=== PATIENT | male | born 1950 | race Caucasian/White ===

== ENCOUNTER 2020-07-04 08:35 | Outpatient (REF) | payer MEDICARE, SELFPAY ==
--- NOTE | ~2020-07-04 | XR_ITS ---
EXAMINATION: XR CHEST CLINICAL INFORMATION: Dyspnea, hypertension and fatigue COMPARISON: Previous chest x-ray and chest CTA June 2019 TECHNIQUE: 2 views of the chest were obtained. FINDINGS: The cardiac silhouette is slightly enlarged but stable. Hilar and mediastinal contours are unremarkable. The lungs are clear. There is no pleural effusion or pneumothorax. There are degenerative changes of the spine. There is a new a loop recorder seen in the left chest wall. XR/XR chest 2V IMPRESSION: Slightly enlarged cardiac silhouette similar to previous exam. No evidence for acute disease in the chest.
[2020-07-04 11:34] LABS: MANUAL DIFF FLAG NO
[2020-07-04 12:01] LABS: Basophils Absolute Auto 0.1 X10*3/uL (0.0-0.2); Basophils Percent Auto 0.6 % (0-2); Eosinophils Absolute Auto 0.3 X10*3/uL (0.0-0.4); Eosinophils Percent Auto 2.6 % (0-4); Hematocrit 44.9 % (42-52); Hemoglobin 14.9 g/dl (14.0-18.0); Imm Gran Abs Auto 0.06 X10*3/uL (0.00-0.03); Imm Gran Pct Auto 0.6 % (0.0-0.4); Lymphocytes Absolute Auto 2.6 X10*3/uL (1.2-4.9); Lymphocytes Percent Auto 26.7 % (20-40); Mean Corpuscular HGB Conc 33.2 g/dl (31.0-36.0); Mean Corpuscular Hemoglobin 30.3 pg (27.0-33.0); Mean Corpuscular Volume 91.3 fL (80-98); Mean Platelet Volume 12.3 fL (9.4-12.4); Monocytes Absolute Auto 0.9 X10*3/uL (0.1-1.2); Monocytes Percent Auto 8.8 % (2-11); Neutrophils Percent Auto 60.7 % (45-73); Platelet Count 222 X10*3/uL (160-400); Red Blood Count 4.92 X10*6/uL (4.60-5.80); Red Cell Distribution Width 13.2 % (11.0-16.0); White Blood Count 9.8 X10*3/uL (4.8-10.8)
[2020-07-04 12:04] LABS: Alanine Aminotransferase 27 U/L (0-40); Albumin Level 4.4 g/dL (3.5-5.0); Alkaline Phosphatase 72 U/L (39-117); Anion Gap 16 (12-20); Aspartate Amino Transferase 27 U/L (5-37); B Type Natriuretic Peptide 100 pg/mL (<100); Bilirubin Total 0.6 mg/dL (0.0-1.0); Blood Urea Nitrogen 18 mg/dL (9-16); Calcium 9.7 mg/dL (8.4-10.2); Carbon Dioxide 25 mmol/L (22-29); Chloride 100 mmol/L (96-108); Cholesterol 144 mg/dL; Estimated Glomerular Filt Rate > 60; Glucose Fasting 118 mg/dL (60-99); HDL Cholesterol 63 mg/dL; LDL Cholesterol Calculated 55 mg/dl; Potassium 4.7 mmol/L (3.3-5.1); Sodium 136 mmol/L (135-145); Total Protein 7.4 g/dL (6.5-8.0); Triglycerides 132 mg/dL
[2020-07-04 12:26] LABS: Thyroid Stimulating Hormone 0.98 uIU/mL (0.32-4.0); Vitamin D 25-OH Total 39.6 ng/mL (>30)
== END 2020-07-04 08:36 | disposition home or self-care (01) ==
LOC: HO.HMGCLDS 08:35
PROVIDERS: Visit Provider Internal Medicine
DX: R06.00 Dyspnea, unspecified (principal); R53.83 Other fatigue; I10 Essential (primary) hypertension; E78.00 Pure hypercholesterolemia, unspecified; E55.9 Vitamin D deficiency, unspecified; L03.116 Cellulitis of left lower limb
CPT/HCPCS: 36415; 71046; 80053; 80061; 82306; 83880; 84443; 85025; 86140

== ENCOUNTER 2024-06-14 10:31 | Outpatient (AMB) | payer MEDICARE, SELFPAY ==
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
[2024-06-14 11:01] VITALS: BP 142/80; PULSE 50; RESP 16; TEMP 36.6; O2SAT 98; BMI 33.5
--- OUTSIDE RECORDS SUMMARY | 2024-06-14 12:35 | XMS_ITS | Clinical Summary ---
Author Organization [address] [facility] Address [address] [place] [address] Phone Care Team Providers Care Tile Power Shear Operator Name Role Phone Jourdan Fernandez DO Primary Care Provider [phone] Encounters Date Type Department Care Team Description 06/14/2024 10:55 AM EDT Ancillary Procedure [facility] - [address] [place] [address] Arrived 06/14/2024 Telephone [facility] - [address] [place] [address] Jayashree Armenta NP 06/11/2024 Ancillary Procedure [facility] [address] [place] [address] Arrived 03/29/2024 8:15 AM EST Ancillary Procedure [facility] - [address] [place] [address] from Last 3 Months Medical History Medical History Date Comments Family history of cardiovascular disease DX:Family history of cardiovascular disease Essential hypertension DX:Essent ial hypertension Hyperlipidemia DX:Hyperlipidemi a Diabetes mellitus type 2, co ntrolled, with complications (CMS/HCC) DX:Diabetes mellitus type 2, controlled, with complications (HCC) Family History Medical History Relation Name Comments Heart attack Father Heart attack Mother Other cancer Mother Cervical Relation Name Status Comments Father Mother 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 Tobacco Use Types Packs/Day Years Used Date Smoking Tobacco: Former Smokeless Tobacco: Never Alcohol Use Standard Drinks/Week Comments No 0 (1 standard drink = 0.6 oz pur e alcohol) Sex and Gender Information Value Date Recorded Sex Assigned at Not on file Legal Sex Male 6:44 PM EST Gender Identity Not on file Sexual Orientation Not on file Obstetrics History Last Filed Vital Signs Vital Sign Reading Time Taken Comments Blood Pressure 122/76 10/22/2023 8:12 AM EDT Sitting L Arm Pulse 42 10/22/2023 8:12 AM EDT Temperature - - Respiratory Rate - - Oxygen Saturation - - Inhaled Oxygen Concentration - - Weight 101 kg (222 lb 12.8 oz) 10/22/2023 8:12 AM EDT Height 175.3 cm (5' 9 ) 10/22/2023 8:12 AM EDT Body Mass Index 32.9 10/22/2023 8:12 AM EDT Plan of Treatment Upcoming Encounters Date Type Department Care Team (Late st Contact Info) Description 12/15/2024 9:00 AM EDT Ancillary Procedure [facility] [address] [facility] [address] [place] [address] Health Maintenance Due Date Last Done Comments Diabetes: Annual GFR (Glomer ular Filtration Rate) 1948 Diabetes: Annual Foot Exam 01/25/1958 Diabetes: Annual Retina Eye Exam 01/25/1958 Zoster Vaccines (1 of 2) 01/25/1998 Pneumococcal Vaccine: 50+ Ye ars (2 of 2 - PCV) 04/26/2014 04/26/2013 DTaP,Tdap,and Td Vaccines (2 - Tdap) 06/16/2018 06/16/2008 Cholesterol Screening (Lipid Panel) 02/15/2022 Depression Screening 02/15/2022 Falls Risk Assessment 02/15/2022 Hepatitis C Screening 02/15/2022 Hypertension/CHF/CAD Annual BMP Blood Test 02/15/2022 Medicare Annual Wellness Visit 02/15/2022 Social Influencers of Health Screening 02/15/2022 RSV Immunization Adult Patie nts (1 - 1-dose 75+ series) 01/25/2023 COVID-19 Vaccine (2023-2 5 season) 2023 Diabetes: Annual Urine Albumin-Creatinine Ratio (uACR) 03/30/2024 Diabetes: Blood Sugar Contro l Test (HGBA1C) 03/30/2024 Influenza Vaccine (Season Ended) 2024 04/26/19 14 HIB Vaccines Aged Out No longer eligi ble based on patient's age to complete this topic HPV Vaccines Aged Out No longer eligi ble based on patient's age to complete this topic Hepatitis A Vaccines Aged Out No long er eligible based on patient's age to complete this topic Hepatitis B Vaccines Aged Out No long er eligible based on patient's age to complete this topic IPV Vaccines Aged Out No longer eligi ble based on patient's age to complete this topic MMR Vaccines Aged Out No longer eligi ble based on patient's age to complete this topic Meningococcal ACWY Vaccine Aged Out N o longer eligible based on patient's age to complete this topic Meningococcal B Vaccine Aged Out No l onger eligible based on patient's age to complete this topic RSV Immunization Patients Un omaira 20 months Aged Out No longer eligible b ased on patient's age to complete this topic Varicella Vaccines Aged Out No longer eligible based on patient's age to complete this topic Medical Devices Implanted Type Area Squeegee Finisher Device Identifier Shelf Expiration Date Model / Serial / Lot Medt-Card Micra Av [id number] Implanted:12/2019 (Quantity not on file) Cardiac Pacemaker [employer] - CARDIAC RHYTH-CRDM MICRA AV [id number] / [id number] / Procedures Procedure Name Priority Date/Time Associated Diagnosis Comments CARDIAC DEVICE CHECK- REMOTE- MURJ Routine 06/14/2024 10:50 AM EDT CARDIAC DEVICE CHECK- REMOTE- MURJ Routine 06/10/2024 11:58 PM EDT EXTERNAL ENDOSCOPY REPORT Routine 05/30/2024 11:12 AM EDT CARDIAC DEVICE CHECK- REMOTE- MURJ Routine 03/29/2024 8:13 AM EST from Last 3 Months Results * Cardiac device check - Remote- MURJ (06/14/2024 10:50 AM EDT) Only the most recent of3 resultswithin the time period is included. Date Time Interrogation Session [id number] CV DEVICE CHECK Type Interrogation Session Remote CV DEVICE CHECK Implantable Pulse Generator Squeegee Finisher MDT CV DEVICE CHECK Implantable Pulse Generator Type IPG CV DEVICE CHECK Implantable Pulse Generator Model Micra AV [id number] CV DEVICE CHECK Implantable Pulse Generator Serial Number [id number] CV DEVICE CHECK Implantable Pulse Generator Implant Date 20191117 CV DEVICE CHECK Battery Remaining Longevity 96.0 CV DEVICE CHECK Battery Voltage 3.000 CV D EVICE CHECK Battery PROJECT COORDINATOR RN Trigger 2.558 CV DEVICE CHECK Battery Status Middle of Service CV DEVICE CHECK Jorge Statistic RV Percent Paced 69.89 CV DEVICE CHECK Lead Channel Sensing Intrinsic Amplitude 12.488 CV DEVICE CHECK Lead Channel Setting Sensing Sensitivity 2.00 CV DEVICE CHECK Lead Channel Impedance Value 460 CV DEVICE CHECK Lead Channel Pacing Threshold Amplitude 0.625 CV DEVICE CHECK Lead Channel Pacing Threshold Pulse Width 0.2 CV DEVICE CHECK Lead Channel RV Pacing Threshold Date 2024-06-14 CV DEVICE CHECK Lead Channel Setting Pacing Amplitude 1.250 CV DEVICE CHECK Lead Channel Setting Pacing Pulse Width 0.2 CV DEVICE CHECK Jorge Setting Mode (NBG Code) VVI CV DEVICE CHECK Jorge Setting Lower Rate Limit 40 CV DEVICE CHECK Date of Service 2024-06-28 CV DEVICE CHECK Anatomical Region Laterality Modality Device Interroga tion 06/14/2024 6:44 AM EDT Impressions 06/14/2024 10:48 AM EDT Normal Remote: No Events * Normal Device Function * Alerts or events: None * Battery: OK, 8.00 yrs * Sensing, impedance and thresholds reviewed * Programmed parameters reviewed * Presenting rhythm reviewed * Heart Rate Histograms reviewed * No significant changes noted Abnormal Remote * Abnormal Device Function *Loss of capture can not be ruled out per Tech services * Battery: OK, 8.00 yrs * Sensing, impedance and thresholds reviewed * Programmed parameters reviewed * Presenting rhythm reviewed * Heart Rate Histograms reviewed Additional Notes: Last 2 paced beats of real time could be fusion but Jorge tech support could not rule out loss of capture. ??Pacing ?? Narrative Procedure Note Jayashree Armenta NP - 06/14/2024 IMPRESSION: Normal Remote: No Events * Normal Device Function * Alerts or events: None * Battery: OK, 8.00 yrs * Sensing, impedance and thresholds reviewed * Programmed parameters reviewed * Presenting rhythm reviewed * Heart Rate Histograms reviewed * No significant changes noted Abnormal Remote * Abnormal Device Function *Loss of capture can not be ruled out per Tech services * Battery: OK, 8.00 yrs * Sensing, impedance and thresholds reviewed * Programmed parameters reviewed * Presenting rhythm reviewed * Heart Rate Histograms reviewed Additional Notes: Last 2 paced beats of real time could be fusion butBrady tech support could not rule out loss of capture. Pacing Jayashree Armenta NP CV IMPLANTABLE CARDIAC DEVIC E PROCEDURES Final Result * External Endoscopy (05/30/2024 11:12 AM EDT) Anatomical Region Laterality Modality Endoscopy Historical Provider GI~PROCEDURE ORDERABLES F inal Result from Last 3 Months Insurance [employer] Care Teams Tile Power Shear Operator Relationship Specialty Start Date End Date Jourdan Fernandez DO [address] [place] [phone] PCP - General 06/27/15
--- OUTSIDE RECORDS SUMMARY | 2024-06-14 12:35 | XMS_ITS | Encounter Summary ---
Author Organization [facility] Address [address] [place] [phone] Care Team Providers Care Windows Application Developer Name Role Phone Jourdan Fernandez DO Primary Care Provider [phone] Encounter Details Date Type Department Care Team (Late Contact Info) Description 06/11/2024 Ancillary Procedure [facility] [address] [facility] [address] [place] [phone] Arrived 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 Tobacco Use Types Packs/Day Years Used Date Smoking Tobacco: Former Smokeless Tobacco: Never Alcohol Use Standard Drinks/Week Comments No 0 (1 standard drink = 0.6 oz pur e alcohol) Sex and Gender Information Value Date Recorded Sex Assigned at Not on file Legal Sex Male 6:44 PM EST Gender Identity Not on file Sexual Orientation Not on file documented as of this encounter Plan of Treatment Upcoming Encounters Date Type Department Care Team (Late Contact Info) Description 12/15/2024 9:00 AM EDT Ancillary Procedure [facility] [address] [place] [phone] documented as of this encounter Procedures Procedure Name Priority Date/Time Associated Diagnosis Comments CARDIAC DEVICE CHECK- REMOTE- MURJ Routine 06/10/2024 11:58 PM EDT documented in this encounter Results * Cardiac device check - Remote- MURJ (06/10/2024 11:58 PM EDT) Date Time Interrogation Session [id number] CV DEVICE CHECK Type Interrogation Session Remote CV DEVICE CHECK Implantable Pulse Generator Cage/Vault Supervisor MDT CV DEVICE CHECK Implantable Pulse Generator Type IPG CV DEVICE CHECK Implantable Pulse Generator Model Micra AV [id number] CV DEVICE CHECK Implantable Pulse Generator Serial Number [id number] CV DEVICE CHECK Implantable Pulse Generator Implant Date 20191117 CV DEVICE CHECK Battery Remaining Longevity 96.0 CV DEVICE CHECK Battery Voltage 3.010 CV D EVICE CHECK Battery GENERAL REPAIR MECHANIC Trigger 2.558 CV DEVICE CHECK Battery Status Middle of Service CV DEVICE CHECK Jorge Statistic RV Percent Paced 60.78 CV DEVICE CHECK Lead Channel Sensing Intrinsic Amplitude 12.938 CV DEVICE CHECK Lead Channel Setting Sensing Sensitivity 2.00 CV DEVICE CHECK Lead Channel Impedance Value 490 CV DEVICE CHECK Lead Channel Pacing Threshold Amplitude 0.625 CV DEVICE CHECK Lead Channel Pacing Threshold Pulse Width 0.2 CV DEVICE CHECK Lead Channel RV Pacing Threshold Date 2023-10-19 CV DEVICE CHECK Lead Channel Setting Pacing Amplitude 1.250 CV DEVICE CHECK Lead Channel Setting Pacing Pulse Width 0.2 CV DEVICE CHECK Jorge Setting Mode (NBG Code) VVI CV DEVICE CHECK Jorge Setting Lower Rate Limit 40 CV DEVICE CHECK Date of Service 2023-10-29 CV DEVICE CHECK Anatomical Region Laterality Modality Device Interroga tion 10/19/2023 7:41 AM EDT Impressions 10/25/2023 7:08 PM EDT Normal Remote: No Events ?? Narrative Procedure Note Jaqui Christensen MD - 06/10/2024 IMPRESSION: Normal Remote: No Events Jaqui Christensen MD CV IMPLANTABLE CARDIAC DEV ICE PROCEDURES Final Result documented in this encounter Visit Diagnoses Not on filedocumented in this encounter Care Teams Windows Application Developer Relationship Specialty Start Date End Date Jourdan Fernandez DO [address] [place] [phone] PCP - General 06/27/15 documented as of this encounter
--- OUTSIDE RECORDS SUMMARY | 2024-06-14 12:35 | XMS_ITS | Encounter Summary ---
Author Organization [facility] Address [address] [place] [address] Care Team Providers Care Development Expert Name Role Phone Jourdan Fernandez DO Primary Care Provider [phone] Encounter Details Date Type Department Care Team (Late st Contact Info) Description 06/14/2024 10:55 AM EDT Ancillary Procedure [facility] - [facility] [address] [facility] [address] [place] [phone] Arrived 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 Tobacco Use Types Packs/Day [...] Description 12/15/2024 9:00 AM EDT Ancillary Procedure [facility] Cardiology [facility] - [facility] [address] [facility] [address] [place] [address] documented as of this encounter Procedures Procedure Name Priority Date/Time Associated Diagnosis Comments CARDIAC DEVICE CHECK- REMOTE- MURJ Routine 06/14/2024 10:50 AM EDT documented in this encounter Results * Cardiac device check - Remote- MURJ (06/14/2024 10:50 AM EDT) Date Time Interrogation Session [id number] CV DEVICE CHECK Type Interrogation Session Remote CV DEVICE CHECK Implantable Pulse Generator Supply Chain Design Manager MDT CV DEVICE CHECK Implantable Pulse Generator Type IPG CV DEVICE CHECK Implantable Pulse Generator Model Micra AV [id number] CV DEVICE CHECK Implantable Pulse Generator Serial Number [id number] CV DEVICE CHECK Implantable Pulse Generator Implant Date 20191117 CV DEVICE CHECK Battery Remaining Longevity 96.0 CV DEVICE CHECK Battery Voltage 3.000 CV D EVICE CHECK Battery GUIDEMAN Trigger 2.558 CV DEVICE CHECK Battery Status [...] ??Pacing ?? Narrative Procedure Note Jayashree Armenta METAL FURNITURE PANEL COVERER - 06/14/2024 IMPRESSION: Normal Remote: No Events [...] not rule out loss of capture. Pacing us Jayashree Armenta METAL FURNITURE PANEL COVERER CV IMPLANTABLE CARDIAC DEVIC E PROCEDURES Final Result documented in this encounter Visit Diagnoses Not on filedocumented in this encounter Care Teams Development Expert Relationship Specialty Start Date End Date Jourdan Fernandez DO [address] [place] [phone] PCP - General 06/27/15 documented as of this encounter
--- OUTSIDE RECORDS SUMMARY | 2024-06-14 12:35 | XMS_ITS | Encounter Summary ---
Author Organization [facility] Address [address] [place] [phone] Care Team Providers Care Balloon Sander Name Role Phone Jourdan Fernandez DO Primary Care Provider [phone] Encounter Details Date Type Department Care Team (Late st Contact Info) Description 06/14/2024 Telephone [facility] - [address] [place] [address] Jayashree Armenta NP [address] [place] [address] 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 Tobacco Use Types Packs/Day Years [...] on file documented as of this encounter Progress Notes * Shraddha Bob MA - 06/14/2024 11:25 AM EDT Called patient and left message to call me back * Jayashree Armenta NP - 06/14/2024 10:46 AM EDT Remote report dated June 14, presenting rhythm with question of ventricular loss of capture last threshold measured on June 14 at 0.63 V at 0.24 ms, this likely represents fusion beats Shraddha, please call the patient and inquire about symptoms that may suggest loss of capture, lightheadedness etc. Patient has little to no heart rate variability Please schedule him to come in for an office threshold testing as well as programming on of rate response. documented in this encounter Plan of Treatment Upcoming Encounters Date Type Department Care Team (Late st Contact Info) Description 12/15/2024 9:00 AM EDT Ancillary Procedure [facility] - [facility] [address] [facility] [address] [place] [address] documented as of this encounter Visit Diagnoses Not on filedocumented in this encounter Care Teams Balloon Sander Relationship Specialty Start Date End Date Jourdan Fernandez DO [address] [place] [phone] PCP - General 06/27/15 documented as of this encounter
== END 2024-06-14 11:46 | disposition home or self-care (01) ==
LOC: HO.HMCSH 10:31
PROVIDERS: PCP Internal Medicine; Visit Provider Internal Medicine
DX: Z00.00 Encounter for general adult medical examination without abnormal findings (principal); E11.9 Type 2 diabetes mellitus without complications; G90.529 Complex regional pain syndrome I of unspecified lower limb; B07.0 Plantar wart

== ENCOUNTER → 2024-06-14 10:31 | Outpatient (BNVA) | payer MEDICARE, SELFPAY | PROVIDERS: PCP Internal Medicine; Visit Provider Internal Medicine | DX: Z00.00 Encounter for general adult medical examination without abnormal findings (principal); E11.9 Type 2 diabetes mellitus without complications; G90.522 Complex regional pain syndrome I of left lower limb; B07.0 Plantar wart | CPT/HCPCS: 96127; 99387 ==

== ENCOUNTER 2024-12-20 13:47 | Outpatient (AMB) | payer MEDICARE, SELFPAY ==
--- OUTSIDE RECORDS SUMMARY | 2024-12-18 22:10 | XMS_ITS | Encounter Summary ---
Author Organization [facility] Address [address] [place] [address] Care Team Providers Care Community Engagement Specialist Name Role Phone Jourdan Fernandez DO Primary Care Provider [phone] Encounter Details Date Type Department Care Team (Late st Contact Info) Description 12/18/2024 10:10 PM EDT Ancillary Procedure [facility] - [address] [place] [address] Arrived 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 Tobacco Use Types Packs/Day [...] Care Team (Late st Contact Info) Description 01/24/2025 9:00 AM EST Ancillary Procedure [facility] Cardiology [facility] [address] [place] [address] 06/15/2025 9:30 AM EDT Ancillary Procedure [facility] Cardiology [facility] - [address] [place] [address] documented as of this encounter Procedures Procedure Name Priority Date/Time Associated Diagnosis Comments CARDIAC DEVICE CHECK- REMOTE- MURJ Routine 12/18/2024 10:09 PM EDT documented in this encounter Results * Cardiac device check - Remote- MURJ (12/18/2024 10:09 PM EDT) Date Time Interrogation Session [id number] CV DEVICE CHECK Type Interrogation Session Remote CV DEVICE CHECK Implantable Pulse Generator Craft Center Director MDT CV DEVICE CHECK Implantable Pulse Generator Type IPG CV DEVICE CHECK Implantable Pulse Generator Model Micra AV [id number] CV DEVICE CHECK Implantable Pulse Generator Serial Number [id number] CV DEVICE CHECK Implantable Pulse Generator Implant Date 20191117 CV DEVICE CHECK Battery Remaining Longevity 96.0 CV DEVICE CHECK Battery Voltage 3.000 CV D EVICE CHECK Battery BOAT RIGGER Trigger 2.558 CV DEVICE CHECK Battery Status Middle of Service CV DEVICE CHECK Lead Channel Sensing Intrinsic Amplitude 11.588 CV DEVICE CHECK Lead Channel Setting Sensing Sensitivity 2.00 CV DEVICE CHECK Lead Channel Impedance Value 480 CV DEVICE CHECK Lead Channel Pacing Threshold Amplitude 0.750 CV DEVICE CHECK Lead Channel Pacing Threshold Pulse Width 0.2 CV DEVICE CHECK Lead Channel RV Pacing Threshold Date 2024-12-15 CV DEVICE CHECK Lead Channel Setting Pacing Amplitude 1.250 CV DEVICE CHECK Lead Channel Setting Pacing Pulse Width 0.2 CV DEVICE CHECK Jorge Setting Mode (NBG Code) VVI CV DEVICE CHECK Jorge Setting Lower Rate Limit 40 CV DEVICE CHECK Date of Service 2024-12-27 CV DEVICE CHECK Anatomical Region Laterality Modality Device Interroga tion 12/15/2024 11:2 1 AM EDT Impressions 12/18/2024 8:14 PM EDT Normal Remote: No Events * Normal Device Function * Alerts or events: None * Battery: OK, 8.00 yrs * Sensing, impedance and thresholds reviewed * Programmed parameters reviewed * Presenting rhythm reviewed * Heart Rate Histograms reviewed * No significant changes noted Narrative Procedure Note Jaqui Christensen MD - 12/18/2024 IMPRESSION: Normal Remote: No Events * Normal Device Function * Alerts or events: None * Battery: OK, 8.00 yrs * Sensing, impedance and thresholds reviewed * Programmed parameters reviewed * Presenting rhythm reviewed * Heart Rate Histograms reviewed * No significant changes noted Jaqui Christensen MD CV IMPLANTABLE CARDIAC DEV ICE PROCEDURES Final Result documented in this encounter Visit Diagnoses Not on filedocumented in this encounter Care Teams Community Engagement Specialist Relationship Specialty Start Date End Date Jourdan Fernandez DO [address] [place] [phone] PCP - General 06/27/15 documented as of this encounter
[2024-12-20 14:00] VITALS: BP 126/70; PULSE 40; RESP 16; TEMP 36.7; O2SAT 99; BMI 32.5
--- NOTE | 2024-12-20 14:00 | A.OFFPC_ITS ---
Vital Signs 12/20/24 14:00 Height 5 ft 9 in Weight 220 lb BMI 32.5 BP 126/70 Respiration 16 Pulse 40 L Pulse Source Pulse Oximeter Temp 98.0 F Temp Source Temporal Artery Scan Pulse Oximetry (%) 99 Comment pt has pacemaker(Pulse typically low per patient) Intake Visit Reasons: 6 Month follow up - see comments Churn Tender Required: No Accompanied by: Self / Same As Patient Allergies No Known Allergies (No Known Allergies*) Allergy (Unverified 12/20/24 14:) none Allergy (Unknown, Uncoded 12/20/24 14:) Unknown Tobacco use date assessed: 06/14/24 Dental Screening Dental Screen Date: 06/14/24 [facility] Medical History (Reviewed 12/20/24 @ 14: by MARY Mcmanus) RSD lower limb Diabetes mellitus Surgical History (Reviewed 12/20/24 @ 14: by MARY Mcmanus) History of colonoscopy (~06/01/14) Family History (Reviewed 12/20/24 @ 14: by MARY Mcmanus) Father Heart attack Mother Heart attack Spinal cord cancer 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 Housing: House Alcohol intake: current Alcohol intake frequency: does not drink Patient Tobacco Use Status: Former Tobacco user service: No Current occupational status: retired and disabled Cognitive needs: No Hearing needs: No Vision needs: Yes (reading glasses) Questionnaire PHQ-9 Over the last 2 weeks, how often have you been bothered by any of the following problems? 1. Little interest or pleasure in doing things: not at all 2. Feeling down, depressed, or hopeless: not at all 3. Trouble falling or staying asleep, or sleeping too much: not at all 4. Feeling tired or having little energy: not at all 5. Poor appetite or overeating: not at all 6. Feeling bad about yourself - or that you are a failure or have let yourself or your family down: not at all 7. Trouble concentrating on things, such as reading the newspaper or watching television: not at all 8. Moving or speaking so slowly that other people could have noticed. Or the opposite - being so fidgety or restless that you have been moving around a lot more than usual: not at all 9. Thoughts that you would be better off or of hurting yourself in some way: not at all Total score: 0 Source: Developed by Drs. Jourdan Seth, Rocael Pozo and colleagues, with an educational artur from [employer]. Thrive Questionnaire Date Thrive assessed: 06/14/24 I am a: Patient What is your living situation today?: I have a steady place to live Within the past 12 months, did the food you bought not last and you didn't have the money to get more?: Never true Within the past 12 months, did you worry whether your food would run out before you got money to buy more?: Never true Do you have trouble paying for medicines?: No Do you have trouble getting transportation to medical appointments?: No Do you have trouble paying your heating and electricity bill?: No Do you have trouble taking care of your child, family member or friend?: No Do you have trouble with day-to-day activities such as bathing, preparing meals, shopping, managing finances, etc.?: No Are you currently unemployed and looking for a job?: No Are you interested in more education?: No Please select the resources that you would like help with: None THRIVE Score: 0 AUDIT C Alcohol Use Questionnaire (AUDIT-C) 1. How often do you have a drink containing alcohol?: Never 3. How often do you have six or more drinks on one occasion?: Never Total Score: 0 DOMO-7 AMB Questionnaire DOMO-7 Date DOMO - 7 assessed: 06/14/24 Feeling nervous, anxious, or on edge: 0 = Not at all Not being able to stop or control worryin = Not at all Worrying too much about different things: 0 = Not at all Trouble relaxin = Not at all Being so restless that it is hard to sit still: 0 = Not at all Becoming easily annoyed or irritable: 0 = Not at all Feeling afraid as if something awful might happen: 0 = Not at all Total DOMO-7 score (0-4 normal; 5-9 mild; 10-14 moderate; 15-21 severe): 0 Source: Developed by Shraddha Lambert Kurt Kroenke and colleagues, with an educational artur from [employer]. Physical exam (Primary Care) Vital Signs: Last Vital Signs Temp 98.0 F 12/20/24 14:00 Pulse 40 L 12/20/24 14:00 Resp 16 12/20/24 14:00 BP 126/70 12/20/24 14:00 Pulse Ox 99 12/20/24 14:00 BMI result Body Mass Index 32.5 Tobacco/Smoking Status: Tobacco use Status Tobacco use date assessed 06/14/24 12/20/24 14:05 Patient Tobacco Use Status Former Tobacco user 12/20/24 14:05 PHQ-9: PHQ-9 Score PHQ-9: Total score 0 12/20/24 14:14 Thrive Assessment: Date of Thrive Assessment Date Thrive assessed 06/14/24 12/20/24 14:05 Office Procedures Flu Questionnaire Does the patient have a severe egg allergy?: No Does the patient have severe life threatening allergies?: No Does the patient have a fever or illness today?: No Has the patient ever had Guillain-Center Cross Syndrome?: No Has the patient ever had any past reaction to a flu shot?: No Immunizations Fluarix [id number] (PF) 45 mcg (15 mcg x 3)/0.5 mL IM syringe Performing Provider: Connor Berg MD [facility] Documented (not given) by: MARY Mcmanus on 12/20/24 14:14 Reason Not Given: Patient Refused Coding Level of Care Code Est Pt Level 4 (29487) Complex EM visit Add On G2211 Diagnoses Diabetes mellitus E11.9 Assessment & Plan Assessment & Plan (1) Diabetes mellitus: Code(s): E11.9 - Type 2 diabetes mellitus without complications Category: Medical Plan: History of Present Illness - The patient is a 74-year-old male presenting with concerns regarding blood work and preventative care measures. - The patient has a history of cataract affecting his vision, but he is still able to drive. - He reports hearing loss, which is noticeable to his , and he acknowledges that his hearing is deteriorating. - The patient has a chronic leg condition that has persisted for 50 years, with no recent changes reported. - Blood work was previously ordered in June, and the patient has not received results due to issues with the lab location and insurance coverage. - The patient prefers to have blood work done at a location where results are directly accessible to his physician. 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 Review of Systems - General: Denies any new health concerns. - Ophthalmologic: Reports need for cataract surgery. - Auditory: Reports hearing loss. - Musculoskeletal: Reports chronic leg condition without recent changes. Physical Exam General: Cooperative and healthy appearing Nutritional Appearance: Well nourished Orientation/consciousness: Patient oriented x3 Limitations: No limitations Head: Normal to inspection General: Appearance normal, both eyes and all related structures Neck: Normal visual inspection Chest: Normal palpation of entire chest wall Respiratory: N ormal respiratory effort Neurology: Patient oriented x3, hearing is going, patient reports says he is always deaf. Results - Labs: Blood work from June showed no abnormalities. Plan - The patient is advised to complete blood work at a location where results are directly accessible to the physician to avoid delays. - The patient will follow up in six months for routine evaluation and to discuss any new concerns. Discussion Notes I discussed with the patient the importance of completing blood work at a location where results are directly accessible to avoid delays in care. We also reviewed the plan for follow-up in six months to monitor his health and address any new concerns that may arise. Patient Instructions - Complete blood work at the specified location to ensure results are accessible to your doctor. - Schedule a follow-up appointment in six months. Orders: Orders Influenza [id number] Immunization Today Z23 - Encounter for immunization Hemoglobin A1c Today E11.9 - Type 2 diabetes mellitus without complications
--- OUTSIDE RECORDS SUMMARY | 2024-12-20 16:44 | XMS_ITS | Clinical Summary ---
Author Organization [address] [place] [address] Address [address] [place] [address] Phone Care Team Providers Care Mortgage Branch Manager Name Role Phone Jourdan Fernandez Primary Care Provider [phone] Allergies No known active allergies Medications amLODIPine (NORVASC) 5 mg tablet Take 1 tablet (5 mg total) by mouth 1 (one) time each day. Active amoxicillin (AMOXIL) 500 mg capsule Take 4 capsules (2,000 mg total) by mouth See administration instructions. 1 hour prior to dental appointment 4 Active aspirin 81 mg chewable tablet Chew 1 tablet (81 mg total) 1 (one) time each day. 6 Active atorvastatin (LIPITOR) 80 mg tablet Take 1 tablet (80 mg total) by mouth at bedtime. 6 Active cholecalcifero l (VITAMIN D-3) 50 mcg (2,000 unit) capsule Take 1 capsule (2,000 Units total) by mouth 1 (one) time each day. Active docusate sodium (COLACE) 100 mg capsule Take 1 capsule (100 mg total) by mouth 1 (one) time each day. 0 Active lisinopriL (PRINIVIL,ZEST RIL) 10 mg tablet Take 1 tablet (10 mg total) by mouth 1 (one) time each day. 0 Active losartan (COZAAR) 25 mg tablet Take 1 tablet (25 mg total) by mouth 1 (one) time each day. Active metFORMIN XR (GLUCOPHAGE-XR ) 750 mg 24 hr tablet Take 2 tablets (1,500 mg total) by mouth 1 (one) time each day. for 90 days Active Encounters Date Type Department Care Team Description 12/18/2024 10:10 PM EDT Ancillary Procedure [facility] Cardiology [facility] - [address] [place] [phone] Arrived 10/31/2024 Telephone [facility] Cardiology [facility] - [facility] [address] [place] [phone] Jaqui Regan MD 10/26/2024 1:45 PM EDT Office Visit [facility] Cardiology [facility] - [address] [place] [address] Jaqui Regan MD Complete heart block (CMS/HCC V24, CMS/HCC V28) (Primary Dx); Osteomyelitis, unspecified site, unspecified type (CMS/HCC V24, CMS/HCC V28); History of placement of leadless cardiac pacemaker 09/21/2024 7:25 AM EDT Ancillary Procedure [facility] - [address] [place] [address] from Last 3 Months Medical History Medical History Date Comments Family history of cardiovascular disease DX:Family history of cardiovascular disease Essential hypertension DX:Essent ial hypertension Hyperlipidemia DX:Hyperlipidemi a Diabetes mellitus type 2, co ntrolled, with complications (CMS/HCC V24, CMS/HCC V28) DX:Diabetes mellitus type 2, controlled, with complications (HCC) Family History Medical History Relation Name Comments Heart attack Father Heart attack Mother Other cancer Mother Cervical Relation Name Status Comments Father Mother 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 Tobacco Use Types Packs/Day Years Used Date Smoking Tobacco: Former Smokeless Tobacco: Never Tobacco Cessation:Counseling Given: Not Answered Alcohol Use Standard Drinks/Week Comments No 0 (1 standard drink = 0.6 oz pur e alcohol) Sex and Gender Information Value Date Recorded Sex Assigned at Not on file Legal Sex Male 6:44 PM EST Gender Identity Not on file Sexual Orientation Not on file Obstetrics History Last Filed Vital Signs Vital Sign Reading Time Taken Comments Blood Pressure 130/72 10/26/2024 1:59 PM EDT Pulse 40 10/26/2024 1:59 PM EDT Temperature - - Respiratory Rate - - Oxygen Saturation 97% 10/26/2024 1:59 PM EDT Inhaled Oxygen Concentration - - Weight 99.8 kg (220 lb) 10/26/2024 1:59 PM EDT Height 175.3 cm (5' 9 ) 10/26/2024 1:59 PM EDT Body Mass Index 32.49 10/26/2024 1:59 PM EDT Plan of Treatment Upcoming Encounters Date Type Department Care Team (Late st Contact Info) Description 01/24/2025 9:00 AM EST Ancillary Procedure [facility] Cardiology [facility] - [facility] [address] [facility] [address] [place] [address] 06/15/2025 9:30 AM EDT Ancillary Procedure [facility] - [facility] [address] [facility] [address] [place] [address] Health Maintenance Due Date Last Done Comments Diabetes: Annual GFR (Glomer ular Filtration Rate) 1948 Diabetes: Annual Foot Exam 01/25/1958 Diabetes: Annual Retina Eye Exam 01/25/1958 Zoster Vaccines (1 of 2) 01/25/1998 Pneumococcal Vaccine: 50+ Ye ars (2 of 2 - PCV) 04/26/2014 04/26/2013 DTaP,Tdap,and Td Vaccines (2 - Tdap) 06/16/2018 06/16/2008 Cholesterol Screening (Lipid Panel) 02/15/2022 Falls Risk Assessment 02/15/2022 Hepatitis C Screening 02/15/2022 Hypertension/CHF/CAD Annual BMP Blood Test 02/15/2022 Medicare Annual Wellness Visit 02/15/2022 Social Influencers of Health Screening 02/15/2022 RSV Immunization Adult Patie nts (1 - 1-dose 75+ series) 01/25/2023 Depression Screening 03/09/2024 Diabetes: Annual Urine Albumin-Creatinine Ratio (uACR) 03/30/2024 Diabetes: Blood Sugar Contro l Test (HGBA1C) 03/30/2024 COVID-19 Vaccine (1 - 2023-2 5 season) 2024 Influenza Vaccine (#1) 2024 04/26/2013 HIB Vaccines Aged Out No longer eligi [...] this topic Medical Devices Implanted Type Area Powerhouse Engineer Device Identifier Shelf Expiration Date Model / Serial / Lot Medt-Card Micra Av [id number] Implanted:11/07 by Jaqui Regan MD (Quantity not on file) Cardiac Pacemaker Right: Heart [employer] - CARDIAC RHYTH-CRDM MICRA AV [id number] / [id number] / Procedures Procedure Name Priority Date/Time Associated Diagnosis Comments CARDIAC DEVICE CHECK- REMOTE- MURJ Routine 12/18/2024 10:09 PM EDT ECG 12-LEAD Routine 10/26/2024 2:09 PM EDT Complete heart block (CMS/HCC V24, CMS/HCC V28) CARDIAC DEVICE CHECK- REMOTE- MURJ Routine 09/21/2024 7:21 AM EDT from Last 3 Months Results * Cardiac device check - Remote- MURJ (12/18/2024 10:09 PM EDT) Only the most recent of2 resultswithin the time period is included. Date Time Interrogation Session CV DEVICE CHECK Type Interrogation Session Remote CV DEVICE CHECK Implantable Pulse Generator Powerhouse Engineer MDT CV DEVICE CHECK Implantable Pulse Generator Type IPG CV DEVICE CHECK Implantable Pulse Generator Model Micra AV [id number] CV DEVICE CHECK Implantable Pulse Generator Serial Number [id number] CV DEVICE CHECK Implantable Pulse Generator Implant Date 20191117 CV DEVICE CHECK Battery Remaining Longevity 96.0 CV DEVICE CHECK Battery Voltage 3.000 CV D EVICE CHECK Battery MACADAM RAKER Trigger 2.558 CV DEVICE CHECK Battery Status [...] Pacing Pulse Width 0.2 CV DEVICE CHECK Ojrge Setting Mode (NBG Code) VVI CV DEVICE [...] significant changes noted Narrative Procedure Note Jaqui Regan MD - 12/18/2024 IMPRESSION: Normal Remote: No Events * Normal Device Function * Alerts or events: None * Battery: OK, 8.00 yrs * Sensing, impedance and thresholds reviewed * Programmed parameters reviewed * Presenting rhythm reviewed * Heart Rate Histograms reviewed * No significant changes noted us Jaqui Regan MD CV IMPLANTABLE CARDIAC DEV ICE PROCEDURES Final Result * ECG 12 lead (10/26/2024 2:09 PM EDT) Ventricular Rate ECG 40 BPM GEMUSE Atrial Rate 29 BPM GEMUSE QRS Duration 180 ms GEMUSE Q-T Interval 528 ms GEMUSE QTc 430 ms GEMUSE R Mittie -81 degrees GEMUSE T Mittie 96 degrees GEMUSE ECG Interpretation Ventricular-pa singh rhythm with underlying p-waves, sinus bradycardia When compared with ECG of 04-NOV-2013 12:04, Electronic ventricular pacemaker has replaced Sinus rhythm Vent. rate has decreased BY 22 BPM Confirmed by JO-ANN REGAN ([id number]) on 10/26/2024 6:07:57 PM GEMUSE 10/26/2024 2:09 PM EDT 10/26/2024 6:07 PM EDT us Jaqui Regan MD ECG ORDERABLES Final Resu lt GEMUSE from Last 3 Months Insurance [employer] Care Teams Mortgage Branch Manager Relationship Specialty Start Date End Date Jourdan Fernandez DO [address] [place] [phone] PCP - General 06/27/15
== END 2024-12-20 14:37 | disposition home or self-care (01) ==
LOC: HO.HMCSH 13:47
PROVIDERS: PCP Internal Medicine; Visit Provider Internal Medicine
DX: E11.9 Type 2 diabetes mellitus without complications (principal); Z23 Encounter for immunization

== ENCOUNTER → 2024-12-20 13:47 | Outpatient (BNVA) | payer MEDICARE, SELFPAY | PROVIDERS: PCP Internal Medicine; Visit Provider Internal Medicine | DX: E11.9 Type 2 diabetes mellitus without complications (principal); Z28.89 Immunization not carried out for other reason | CPT/HCPCS: 90471; 96127; 99212 ==

== ENCOUNTER 2025-01-10 08:23 | Outpatient (REF) | payer MEDICARE, SELFPAY ==
--- OUTSIDE RECORDS SUMMARY | 2025-01-10 08:41 | XMS_ITS | Clinical Summary ---
Author Organization [address] [place] [address] Address [address] [place] [address] Phone Care Team Providers Care Assistant Passenger Locomotive Engineer Name Role Phone Jourdan Fernandez Primary Care Provider [phone] Allergies No known active allergies Medications amLODIPine [...] Description 12/18/2024 10:10 PM EDT Ancillary Procedure [facility] [place] [facility] [address] [place] [phone] 10/31/2024 Telephone [facility] [place] [facility] [address] [place] [phone] Jaqui Regan MD 10/26/2024 1:45 PM EDT Office Visit [facility] [place] [facility] [address] [place] [phone] Jaqui Regan MD Complete heart block (CMS/HCC V24, CMS/HCC V28) (Primary Dx); Osteomyelitis, unspecified site, unspecified type (CMS/HCC V24, CMS/HCC V28); History of placement of leadless cardiac pacemaker from Last 3 Months Medical History Medical History Date Comments Family history of cardiovascular disease DX:Family history of cardiovascular disease Essential hypertension DX:Essent ial hypertension Hyperlipidemia DX:Hyperlipidemi a Diabetes mellitus type 2, co ntrolled, with complications (CMS/HCC V24, CMS/HCC V28) DX:Diabetes mellitus type 2, controlled, with complications ([facility]) Family History Medical History Relation Name Comments [...] Description 01/24/2025 9:00 AM EST Ancillary Procedure [facility] [place] [facility] [address] [place] [address] 06/15/2025 9:30 AM EDT Ancillary Procedure [facility] - [facility] [address] [place] [address] Health Maintenance Due Date Last Done Comments [...] Contro l Test (HGBA1C) 03/30/2024 COVID-19 Vaccine ( - 2023-2 5 season) 2024 Influenza Vaccine [...] this topic Medical Devices Implanted Type Area Manager Ems Device Identifier Shelf Expiration Date Model / Serial / Lot Medt-Card Micra Av [id number] Implanted:11/07 by Jaqui Regan MD (Quantity not on file) Cardiac Pacemaker Right: Heart [employer] - CARDIAC RHYTH-CRDM MICRA AV [id number] / [id number] / Procedures Procedure Name Priority Date/Time Associated Diagnosis Comments CARDIAC DEVICE CHECK- REMOTE- MURJ Routine 12/18/2024 10:09 PM EDT ECG 12-LEAD Routine 10/26/2024 2:09 PM EDT Complete heart block (CMS/HCC V24, CMS/HCC V28) from Last 3 Months Results * Cardiac device check - Remote- MURJ (12/18/2024 10:09 PM EDT) Date Time Interrogation Session [id number] CV DEVICE CHECK Type Interrogation Session Remote CV DEVICE CHECK Implantable Pulse Generator Manager Ems MDT CV DEVICE CHECK Implantable Pulse Generator Type IPG CV DEVICE CHECK Implantable Pulse Generator Model Micra AV [id number] CV DEVICE CHECK Implantable Pulse Generator Serial Number [id number] CV DEVICE CHECK Implantable Pulse Generator Implant Date [id number] CV DEVICE CHECK Battery Remaining Longevity 96.0 CV DEVICE CHECK Battery Voltage 3.000 CV D EVICE CHECK Battery MANUFACTURING ASSISTANT Trigger 2.558 CV DEVICE CHECK Battery Status [...] reviewed * No significant changes noted Jaqui Regan MD CV IMPLANTABLE CARDIAC DEV ICE PROCEDURES Final Result * ECG 12 lead (10/26/2024 2:09 PM EDT) Ventricular Rate ECG 40 BPM GEMUSE Atrial Rate 29 BPM GEMUSE QRS Duration 180 ms GEMUSE Q-T Interval 528 ms GEMUSE QTc 430 ms GEMUSE R [place] -81 degrees GEMUSE T [place] 96 degrees GEMUSE ECG Interpretation Ventricular-pa singh rhythm with underlying p-waves, sinus bradycardia When compared with ECG of 04-NOV-2013 12:04, Electronic ventricular pacemaker has replaced Sinus rhythm Vent. rate has decreased BY 22 BPM Confirmed by JO-NAN REGAN ([id number]) on 10/26/2024 6:07:57 PM GEMUSE 10/26/2024 2:09 PM EDT 10/26/2024 6:07 PM EDT Jaqui Regan MD ECG ORDERABLES Final Resu lt GEMUSE from Last 3 Months Insurance [employer] Care Teams Assistant Passenger Locomotive Engineer Relationship Specialty Start Date End Date Jourdan Fernandez DO [address] [place] [phone] PCP - General 06/27/15
[2025-01-10 10:43] LABS: Hematocrit 44.6 % (42.0-52.0); Hemoglobin 14.6 g/dl (14.0-18.0); Mean Corpuscular HGB Conc 32.7 g/dl (31.0-36.0); Mean Corpuscular Hemoglobin 29.3 pg (27.0-33.0); Mean Corpuscular Volume 89.6 fL (80.0-98.0); NRBC Abs Auto 0.000 X10*3/uL (0.0-0.012); NRBC Pct Auto 0.0 /100WBC (0.0-0.2); Platelet Count 204 X10*3/uL (160-400); Red Blood Count 4.98 X10*6/uL (4.60-5.80); White Blood Count 6.5 X10*3/uL (4.8-10.8)
[2025-01-10 11:08] LABS: Microalbum/Creatinine Ratio Ur 549.5 ug/mg cr (<30)
[2025-01-10 11:11] LABS: Alanine Aminotransferase 28 U/L (0-40); Albumin Level 4.2 g/dL (3.5-5.0); Alkaline Phosphatase 82 U/L (39-117); Anion Gap 13 (12-20); Aspartate Amino Transferase 30 U/L (5-37); Blood Urea Nitrogen 11 mg/dL (9-16); Calcium 9.5 mg/dL (8.4-10.2); Carbon Dioxide 24 mmol/L (22-29); Chloride 105 mmol/L (96-108); Cholesterol 133 mg/dL (<200); Estimated Glomerular Filt Rate > 60; HDL Cholesterol 58 mg/dL (>40); Potassium 4.2 mmol/L (3.3-5.1); Sodium 138 mmol/L (135-145); Total Protein 7.1 g/dL (6.5-8.0); Triglycerides 81 mg/dL (<150)
[2025-01-10 11:20] LABS: Thyroid Stimulating Hormone 1.40 uIU/mL (0.32-4.0)
== END 2025-01-10 08:24 | disposition home or self-care (01) ==
LOC: HO.HMGCLDS 08:23
PROVIDERS: PCP Internal Medicine; Visit Provider Internal Medicine
DX: E11.9 Type 2 diabetes mellitus without complications (principal)
CPT/HCPCS: 36415; 80048; 80061; 80076; 82043; 82570; 83036; 84443; 85027

== ENCOUNTER 2025-01-26 14:52 | Outpatient (AMB) | payer MEDICARE, SELFPAY ==
[2025-01-26 14:57] VITALS: BP 148/82; PULSE 58; RESP 14; TEMP 36.6; O2SAT 98; BMI 32.9
--- NOTE | 2025-01-26 14:57 | MHC.PC.OV ---
Vital Signs 01/26/25 14:57 01/26/25 17:04 Height 5 ft 9 in Weight 223 lb BMI 32.9 BP 148/82 H 137/72 Respiration 14 Pulse 58 Pulse Source Pulse Oximeter Temp 97.9 F Temp Source Temporal Artery Scan Pulse Oximetry (%) 98 Oxygen Delivery Method Room Air Intake Visit Reasons: Ears draining and blocked Costumed Character Entertainer Required: No Accompanied by: Self / Same As Patient Allergies No Known Allergies (No Known Allergies*) Allergy (Unverified 01/26/25 17:04) none Allergy (Unknown, Uncoded 01/26/25 17:04) Unknown Medication List - Last Reconciled 01/26/25 by Gina Serna PA-C amlodipine 5 mg PO DAILY aspirin 81 mg PO DAILY atorvastatin 40 mg PO DAILY cholecalciferol (vitamin D3) 25 mcg PO DAILY ciprofloxacin HCl 500 mg PO BID 10 days losartan 25 mg PO DAILY metformin ER 750 mg PO BID 90 days ofloxacin 0.3% 10 drps otic (ears) BID 14 days Tobacco use date assessed: 06/14/24 Dental Screening Dental Screen Date: 06/14/24 HPI HPI Comments History of Present Illness Details History of Present Illness The patient is a 75 year old individual presenting with a sensation of blocked ears. The symptom started approximately three to four weeks ago and is described as an echo-like feeling, similar to having water in the ears. The patient denies any recent swimming but did travel by airplane in November, though the ear symptoms began after that time. The patient was recently diagnosed with type 2 diabetes, with a hemoglobin A1c of 6.9 from a few days prior, though the patient believed to be prediabetic. The patient takes Metformin ER 750 mg twice daily. Other medications include amlodipine 5 mg, losartan 25 mg, atorvastatin 40 mg, aspirin, and vitamin D. Recent lab work ordered by Dr. Peralta was reviewed, showing normal white blood cell count, electrolytes, kidney function, liver enzymes, cholesterol, and TSH. An echocardiogram was performed on Thursday, with results pending. 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 - Nutrition: The patient was provided with dietary information regarding foods to eat and avoid for diabetes management, including recommendations to stay away from white bread and pasta. - Exercise: The potential to improve diabetes with diet and exercise was discussed. [facility] Medical History (Updated 01/26/25 @ 17:09 by Gina Serna PA-C) Preventative health care Hypertension Type 2 diabetes mellitus with hemoglobin A1c goal of less than 7.0% Otomycosis RSD lower limb Diabetes mellitus Surgical History History of colonoscopy (~06/01/14) Family History Father Heart attack Mother Heart attack Spinal cord cancer 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 Housing: House Alcohol intake: current Alcohol intake frequency: does not drink Patient Tobacco Use Status: Former Tobacco user service: No Current occupational status: retired and disabled Cognitive needs: No Hearing needs: No Vision needs: Yes (reading glasses) Questionnaire PHQ-9 Over the last 2 weeks, how often have you been bothered by any of the following problems? 1. Little interest or pleasure in doing things: not at all 2. Feeling down, depressed, or hopeless: not at all 3. Trouble falling or staying asleep, or sleeping too much: not at all 4. Feeling tired or having little energy: not at all 5. Poor appetite or overeating: not at all 6. Feeling bad about yourself - or that you are a failure or have let yourself or your family down: not at all 7. Trouble concentrating on things, such as reading the newspaper or watching television: not at all 8. Moving or speaking so slowly that other people could have noticed. Or the opposite - being so fidgety or restless that you have been moving around a lot more than usual: not at all 9. Thoughts that you would be better off or of hurting yourself in some way: not at all Total score: 0 Depression Screening Interpretation: Negative Depression Screening Done: Yes 38317 - PHQ-9 Billing: Yes Source: Developed by Drs. Jourdan Seth, Shraddha Christine, Rocael Arrington and colleagues, with an educational artur from [employer]. Thrive Questionnaire Date Thrive assessed: 06/14/24 I am a: Patient What is your living situation today?: I have a steady place to live Within the past 12 months, did the food you bought not last and you didn't have the money to get more?: Never true Within the past 12 months, did you worry whether your food would run out before you got money to buy more?: Never true Do you have trouble paying for medicines?: No Do you have trouble getting transportation to medical appointments?: No Do you have trouble paying your heating and electricity bill?: No Do you have trouble taking care of your child, family member or friend?: No Do you have trouble with day-to-day activities such as bathing, preparing meals, shopping, managing finances, etc.?: No Are you currently unemployed and looking for a job?: No Are you interested in more education?: No Please select the resources that you would like help with: None THRIVE Score: 0 AUDIT C Alcohol Use Questionnaire (AUDIT-C) 1. How often do you have a drink containing alcohol?: Never 3. How often do you have six or more drinks on one occasion?: Never Total Score: 0 Score Reviewed/Action Taken: No DOMO-7 AMB Questionnaire DOMO-7 Date DOMO - 7 assessed: 06/14/24 Feeling nervous, anxious, or on edge: 0 = Not at all Not being able to stop or control worryin = Not at all Worrying too much about different things: 0 = Not at all Trouble relaxin = Not at all Being so restless that it is hard to sit still: 0 = Not at all Becoming easily annoyed or irritable: 0 = Not at all Feeling afraid as if something awful might happen: 0 = Not at all Total DOMO-7 score (0-4 normal; 5-9 mild; 10-14 moderate; 15-21 severe): 0 Source: Developed by Drs. Jourdan Seth, Shraddha Christine, Rocael Arrington and colleagues, with an educational artur from [employer]. DOMO-7 Assessment Billing DOMO-7 Assessment Tool: DOMO-7 Assessment 39090 Review of Systems Narrative Review of Systems - Ears: Reports a sensation of fullness and an echo for the past 3-4 weeks. - Constitutional: Denies recent swimming. Const All systems reviewed & are unremarkable except as noted in HPI and below Physical exam (Primary Care) Vital Signs: Last Vital Signs Temp 97.9 F 01/26/25 14:57 Pulse 58 01/26/25 14:57 Resp 14 01/26/25 14:57 BP 148/82 H 01/26/25 14:57 Pulse Ox 98 01/26/25 14:57 Oxygen Delivery Method Room Air 01/26/25 14:57 Care Plan Goal for BP management: <140/90 at Goal BMI result Body Mass Index 32.9 BMI Assessment/Plan discussion: High BMI High, discussed plan: lifestyle, weight reduction, dietary, physical activity, alcohol moderation and other Tobacco/Smoking Status: Tobacco use Status Tobacco use date assessed 06/14/24 01/26/25 14:59 Patient Tobacco Use Status Former Tobacco user 01/26/25 14:59 PHQ-9: PHQ-9 Score PHQ-9: Total score 0 01/26/25 15:52 Depression Screening Interpretation: Negative Thrive Assessment: Date of Thrive Assessment Date Thrive assessed 06/14/24 01/26/25 14:59 Narrative Physical Exam Appearance: Alert. Oriented X3. No acute distress. Head: Normal external exam. Normocephalic. Atraumatic. Eyes: Pupils are equal, round, and reactive to light. Extraocular movements intact. Conjunctiva and sclera normal. Eyelids normal. Ears: External auditory canal shows signs of infection, erythematous, macerated and filled with fungal spores, hyphae or clumpy debris. Tympanic membranes normal. No tenderness over the mastoid, swelling or erythema. Not consistent with mastoiditis. Throat: Pharynx normal. Uvula midline. Moist mucous membranes. Neck: Normal inspection. Neck supple. Full range of motion. No adenopathy. No meningeal signs. No neck mass noted. Cardiovascular: Normal heart rate and rhythm. Heart sound normal. No murmurs noted. Pulses normal throughout. Blood pressure recorded at 148/82, rechecked at 137/72. Respiratory: No respiratory distress. Painless inspiration. Back: Full range of motion noted. Skin: Skin warm and dry. Normal skin color. Normal skin turgor. No rashes/lesions/lacerations noted. Extremities: Extremities exhibit normal range of motion. Results Reviewed Results Reviewed: - Labs: Recent bloodwork revealed a hemoglobin A1c of 6.9. White blood cell count, sodium, potassium, kidney function, liver enzymes, cholesterol, and TSH were all normal. A microalbumin was also performed. - Procedures: An echocardiogram was performed recently; results are pending. Coding Level of Care Code Est Pt Level 4 (72726) Complex visit Add On G2211 Diagnoses Otomycosis B36.9; H62.40 Type 2 diabetes mellitus with hemoglobin A1c goal of less than 7.0% E11.9 Hypertension I10 Preventative health care Z00.00 Additional Codes PHQ-9 - 00111 - PHQ-9 Billing: Yes ([id number]) DOMO-7 Assessment Billing - DOMO-7 Assessment Tool: DOMO-7 Assessment 70830 ([id number]) Assessment & Plan Assessment & Plan (1) Otomycosis: Code(s): B36.9 - Superficial mycosis, unspecified; H62.40 - Otitis externa in other diseases classified elsewhere, unspecified ear Category: Medical Plan: The patient's sensation of blocked ears is attributed to a fungal infection in the ear canal, likely related to elevated blood glucose levels. A prescription for ear drops will be sent to the pharmacy. And oral ciprofloxacin sent at this time. A referral to an [facility] (ENT) will be placed. (2) Type 2 diabetes mellitus with hemoglobin A1c goal of less than 7.0%: Code(s): E11.9 - Type 2 diabetes mellitus without complications Category: Medical Plan: The patient has uncontrolled type 2 diabetes with a recent A1c of 6.9. The patient will continue Metformin ER 750 mg twice daily. The patient was counseled on dietary modifications. A follow-up visit in three months is recommended to recheck the A1c. (3) Hypertension: Code(s): I10 - Essential (primary) hypertension Category: Medical Plan: The patient's blood pressure is borderline elevated despite treatment with amlodipine and losartan. The patient was advised to purchase a home blood pressure cuff to monitor readings. The patient was instructed on the proper technique for taking blood pressure measurements. The patient was advised to return to the clinic sooner if blood pressure readings are consistently high. (4) Preventative health care: Code(s): Z00.00 - Encounter for general adult medical examination without abnormal findings Category: Medical Plan: A PSA test was not included in the patient's recent lab work. New lab orders will be placed for a PSA, vitamin B12, vitamin D, and magnesium level. Plan Plan Patient was informed and verbally consented to the use of an ambient scribe for clinic note documentation during this visit. 1. Otomycosis The patient's sensation of blocked ears is attributed to a fungal infection in the ear canal, likely related to elevated blood glucose levels. A prescription for ear drops will be sent to the pharmacy. And oral ciprofloxacin prescribed at this time. A referral to an [facility] (ENT) will be placed. 2. Type 2 Diabetes Mellitus The patient has uncontrolled type 2 diabetes with a recent A1c of 6.9. The patient will continue Metformin ER 750 mg twice daily. The patient was counseled on dietary modifications. A follow-up visit in three months is recommended to recheck the A1c. 3. Hypertension The patient's blood pressure is borderline elevated despite treatment with amlodipine and losartan. The patient was advised to purchase a home blood pressure cuff to monitor readings. The patient was instructed on the proper technique for taking blood pressure measurements. The patient was advised to return to the clinic sooner if blood pressure readings are consistently high. 4. Preventative Care A PSA test was not included in the patient's recent lab work. New lab orders will be placed for a PSA, vitamin B12, vitamin D, and magnesium level. Discussion Notes I informed the patient that the sensation of fullness in the ears is due to a fungal infection, not a physical blockage, and explained that this is likely related to having high blood sugar. I clarified that a recent hemoglobin A1c of 6.9 indicates a diagnosis of diabetes, not prediabetes. I discussed the plan, which includes prescribing ear drops, making a referral to an ENT specialist, and ordering lab work for a PSA, vitamin B12, vitamin D, and magnesium. I advised the patient on the importance of managing blood sugar through diet and provided educational materials. I also recommended that the patient monitor blood pressure at home and scheduled a follow-up appointment in three months to re-evaluate the A1c, with instructions to return sooner if blood pressure is consistently elevated. Orders: Orders PSA,Total (Free>4and<10) Today Z00.00 - Encounter for general adult medical examination without abnormal findings Vitamin B12 and Folate Today Z00.00 - Encounter for general adult medical examination without abnormal findings Vitamin D 25-OH Total Today Z00.00 - Encounter for general adult medical examination without abnormal findings Magnesium Today Z00.00 - Encounter for general adult medical examination without abnormal findings Referrals Ear/Nose/Throat Referral B36.9 - Superficial mycosis, unspecified, H62.40 - Otitis externa in other diseases classified elsewhere, unspecified ear Medications: New ofloxacin 0.3% 10 drps otic (ears) BID 10 mL 0RF 14 days ciprofloxacin HCl 500 mg PO BID 20 tabs 0RF 10 days Patient Instructions: Patient Instructions - The feeling of blockage in your ears is from an infection caused by high blood sugar. - A prescription for ear drops will be sent to your pharmacy, [facility] on [address]. You can pick it up in about an hour or two. - We are referring you to an ear, nose, and throat (ENT) doctor for your ear. - You have diabetes, which needs to be managed. Follow the diet information we gave you to help control your blood sugar. - Please go to the lab to get blood tests for your prostate (PSA), vitamin B12, vitamin D, and magnesium. - Please buy a blood pressure machine and check your blood pressure at home. If your readings are high, you need to come back to the clinic. - You need to schedule a follow-up appointment in three months to check your blood sugar control.
[2025-01-26 17:04] VITALS: BP 137/72
== END 2025-01-26 16:11 | disposition home or self-care (01) ==
LOC: HO.HMCSH 14:52
PROVIDERS: PCP Physician Assistant Medical; Visit Provider Physician Assistant Medical
DX: B36.9 Superficial mycosis, unspecified (principal); H62.40 Otitis externa in other diseases classified elsewhere, unspecified ear; E11.9 Type 2 diabetes mellitus without complications; I10 Essential (primary) hypertension; Z00.00 Encounter for general adult medical examination without abnormal findings

== ENCOUNTER → 2025-01-26 14:52 | Outpatient (BNVA) | payer MEDICARE, SELFPAY | PROVIDERS: PCP Physician Assistant Medical; Visit Provider Physician Assistant Medical | DX: B36.9 Superficial mycosis, unspecified (principal); H62.43 Otitis externa in other diseases classified elsewhere, bilateral; E11.9 Type 2 diabetes mellitus without complications; I10 Essential (primary) hypertension; Z00.00 Encounter for general adult medical examination without abnormal findings; Z13.31 Encounter for screening for depression; Z13.39 Encounter for screening examination for other mental health and behavioral disorders | CPT/HCPCS: 96127; 99212 ==